=== PATIENT | male | born 1950 | race African-American/Black ===

== ENCOUNTER 2019-04-06 11:19 | Inpatient (IN) ==
[2019-04-06] MEDS ORDERED: DUONEB (A & A) INH PRN (13:43)
[2019-04-06 14:24] LABS: INR 1.16; PROTIME 15.7 Seconds (11.0-16.0)
--- NOTE | 2019-04-06 14:32 | EKG Report ---
Test Performed on : 04/06/2019 2:09:10 PM Test Reason : dyspnea Blood Pressure : / mmHG Vent. Rate : 089 BPM Atrial Rate : 089 BPM P-R Int : 136 ms QRS Dur : 084 ms QT Int : 358 ms P-R-T Axes : 083 035 080 degrees QTc Int : 435 ms Normal sinus rhythm. Normal ECG When compared with ECG of 19-SEP-2018 12:50, No significant change was found Confirmed by Enrrique AGUERO, Jimmy Deshpande ([id number]) on 04/09/2019 11:29:47 AM
[2019-04-06 14:33] LABS: BASO# 0.04 X1000 (0.0-0.2); BASO% 0.4 % (0.0-0.8); EOS# 0.06 X1000 (0.0-0.7); EOS% 0.6 % (0.0-10.0); HEMATOCRIT 25.1 % (42.0-52.0); HEMOGLOBIN 8.2 g/dL (14.0-18.0); IMM GRAN# 0.04 X1000 (0.0-0.04); IMM GRAN% 0.4 % (0.0-0.5); LYMPH# 1.33 X1000 (1.2-3.4); LYMPH% 13.2 % (20.5-51.1); MCH 28.4 PG (27-31); MCHC 32.7 g/dL (33-37); MCV 86.9 FL (81-99); MONO# 0.96 X1000 (0.11-0.59); MONO% 9.5 % (1.7-9.3); MPV 10.3 FL (7.4-10.4); NEUT# 7.63 X1000 (1.4-6.5); NEUT% 75.9 % (42.2-75.2); PLT 331 X1000 (130-400); RBC 2.89 XMIL (4.7-6.1); WBC 10.06 X1000 (4.8-10.8)
[2019-04-06] MEDS ORDERED: NS 1,000 ML IV ONE ×2 (14:41→14:44)
[2019-04-06] MEDS: ROCEPHIN 1 GM in NS 50 ML IV SCH (14:43)
--- NOTE | 2019-04-06 14:43 | Diag Imaging Result Doc PS360 ---
CHEST-2 VIEWS - 04/06/2019 INDICATION: pna COMPARISON: 09/19/2018 FINDINGS: Lungs are hyperexpanded compatible with COPD. There is dense infiltrate in both lung bases. No pneumothorax or significant pleural effusion. Heart size and pulmonary vascularity remain normal. There appear to be CABG changes. IMPRESSION: Dense bilateral basilar infiltrates compatible with pneumonia. Advanced COPD. Electronically signed by Demetris Quiros 04/06/2019 2:41 PM
[2019-04-06] MEDS ORDERED: NS 1,000 ML ONE (14:52)
[2019-04-06 14:58] LABS: AGAP 10; ALB/GLOB RATIO 0.6; ALBUMIN 2.7 g/dL (3.5-5.0); ALKALINE PHOSPHATASE 70 U/L (32-122); BUN 8 mg/dL (8-22); CALCIUM 8.4 mg/dL (8.8-10.2); CHLORIDE 99 mmol/L (98-107); CK PROFILE 87 U/L (24-204); COSMO 266; CREATININE 0.9 mg/dL (0.7-1.2); ESTIMATED GFR > 60; GLUCOSE 96 mg/dL (70-104); GOT 69 U/L (10-34); GPT 43 U/L (10-44); MAGNESIUM 2.1 mg/dL (1.5-2.7); POTASSIUM 4.2 mmol/L (3.5-5.1); SODIUM 134 mmol/L (136-145); TCO2 25 mmol/L (25-35); TOTAL BILIRUBIN 0.78 mg/dL (0.20-1.00); TOTAL PROTEIN 7.2 g/dL (6.3-8.3)
[2019-04-06] MEDS ORDERED: SOLU-MEDROL IV SCH (15:00)
[2019-04-06] MEDS: ZITHROMAX 500 MG/NS 500 MG/250 ML IVPB IV SCH (15:06)
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
--- NOTE | 2019-04-06 16:05 | Diag Imaging Result Doc PS360 ---
CT THORAX W/CONTRAST - 04/06/2019 INDICATION: weight loss, pna, copd COMPARISON: 10/15/2014 FINDINGS: There is nonspecific diffuse mediastinal lymphadenopathy. There is mild cardiomegaly. There are CABG changes. There is substantial infiltrate in both lower lobes, the lingula and right middle lobe. There is also severe diffuse chronic bronchitis. There is significant COPD. There is severe fluid opacification of essentially all of the lower lobe segmental bronchi bilaterally. There is a trace left pleural effusion. There are some small scattered cysts of the liver stable from prior. Otherwise upper abdominal images are unremarkable. IMPRESSION: 1. Severe bibasilar pneumonia. This is likely aspiration related. 2. Trace left pleural effusion. 3. Cardiomegaly. 4. Advanced COPD with chronic bronchitis. This exam was performed using automated exposure control, adjustment of mA or kV according to patient size, and/or use of iterative reconstruction technique Electronically signed by Demetris Quiros 04/06/2019 4:02 PM
[2019-04-06] MEDS: DUONEB (A & A) INH SCH ×3 (16:31→22:56)
[2019-04-06 17:06] LABS: ALLEN TEST YES; BE -0.6 mmoll (-3.0-3.0); BLOOD TYPE ARTERIAL; HCO3-(ACT) 24.4 mmoll (20.0-26.0); METHB 1.3 % (0.0-1.5); O2(CT) 13.8 mL/dL (15.0-23.0); O2HB 92.4 % (95.0-99.0); PCO2(98.6) 33 mmHg (35-45); PO2(98.6) 68 mmHg (60-100); SAMPLE BLOOD; THB 10.6 g/dL (11.5-17.4); pH(98.6) 7.45 (7.35-7.45)
[2019-04-06 17:08] LABS: MODALITY ROOM AIR
[2019-04-06 18:22] LABS: IRON SATURATION 9 %; TIBC 119 ug/dL; TOTAL IRON 11 ug/dL (53-167); UNBOUND IRON 108 ug/dL (112-346)
[2019-04-06] MEDS ORDERED: TYLENOL PO PRN (18:39)
--- NOTE | 2019-04-06 22:18 | HISTORY AND PHYSICAL ---
ADDENDUM: To history and physical dictated by the nurse practitioner. I agree with most components of history, physical, assessment, and plan. IN BRIEF: Mr. Guzman is a 68 years old man with past medical history of chronic obstructive pulmonary disease on home oxygen, active tobacco use, coronary artery bypass grafting in 2001, who came in because of not feeling well. Apparently, was diagnosed with pneumonia about a week ago and was started on outpatient antibiotics, which he did not tolerate, which he did not improve on. He saw his regular doctor today and, considering he was short of breath, he was sent to the emergency room. At the time of my evaluation, he states he is feeling much better than when he woke up this morning. He is denying any chest pain. He is coughing yellowish sputum but his shortness of breath is better. He states he has also lost significant weight recently. We discussed about exam findings, medical management plan. I answered all of his questions currently. PHYSICAL EXAMINATION: VITAL SIGNS: Currently vitals suggest temperature of 97.8 degrees, pulse 87, respiratory rate 20, blood pressure 93/52, saturating 97% on room air. GENERAL: He does not appear in any acute distress. He does appear a little sleepy, however, he is able to maintain adequate communication and answers all questions appropriately. He is alert and oriented x3. HEENT: Oral cavity has nodular appearing tongue. RESPIRATORY: He has significantly decreased breath sounds bilaterally, likely in the setting of chronic obstructive pulmonary disease. However, he does not appear to have significant wheezes. CARDIOVASCULAR: S1, S2 normal. He has significantly noticeable splitting of 2nd heart sound accentuated during expiration. ABDOMEN: Soft, nontender. No jugular venous distention. EXTREMITIES: No lower extremity edema. NEUROLOGIC: He is alert oriented x3. LABS: Suggestive of WBC of 10,000, normocytic anemia, normal platelet count. ABG suggestive of PO2 of 68 on room air. He does have mild hyponatremia. Normal kidney function. His iron studies suggest very low iron saturation suggestive of iron deficiency. However, his ferritin level is high, so there is also a component of anemia of chronic disease. He does have low vitamin D. ASSESSMENT AND PLAN: 1. Bilateral lower lobe pneumonia with failed outpatient treatment. I will follow up with sputum culture, blood culture, urine Legionella, and streptococcal antigen. Will start him on intravenous ceftriaxone, azithromycin, and lactated Ringer's. I will also keep the and on albuterol/ipratropium routinely every 4 hours for history of chronic obstructive pulmonary disease and chronic hypoxic respiratory failure. I will give him oxygen as needed to maintain saturation more than 94%. Currently, he is not wheezing, so I am holding of adding intravenous steroids, and I would add as per the clinical examinations in future. 2. Normocytic anemia with degree of iron deficiency. I will start him on oral iron and also get fecal occult blood testing. 3. Severe protein calorie malnutrition. I encouraged him to eat. His vitamin D level is slightly low and I will start him on vitamin D supplementation. Depending on his course, he might need further workup to rule out any malignancy. I will keep him on nicotine patch for tobacco abuse. 4. History of coronary artery disease status post CABG. He is not able to tell me what medication he was taking at home. I will await final medication reconciliation and we will start him on medications accordingly. Plan of care discussed with the patient. All of his questions have been answered. cc: Harpreet Huynh MD
[2019-04-07] MEDS: DUONEB (A & A) INH SCH ×6 (04:11→23:18)
[2019-04-07 08:11] LABS: BASO# 0.01 X1000 (0.0-0.2); BASO% 0.1 % (0.0-0.8); EOS# 0.01 X1000 (0.0-0.7); EOS% 0.1 % (0.0-10.0); HEMATOCRIT 31.8 % (42.0-52.0); HEMOGLOBIN 10.5 g/dL (14.0-18.0); IMM GRAN# 0.02 X1000 (0.0-0.04); IMM GRAN% 0.2 % (0.0-0.5); LYMPH# 0.55 X1000 (1.2-3.4); LYMPH% 6.1 % (20.5-51.1); MCH 28.5 PG (27-31); MCV 86.4 FL (81-99); MONO# 0.39 X1000 (0.11-0.59); MONO% 4.3 % (1.7-9.3); MPV 10.1 FL (7.4-10.4); NEUT# 8.09 X1000 (1.4-6.5); NEUT% 89.2 % (42.2-75.2); PLT 311 X1000 (130-400); RBC 3.68 XMIL (4.7-6.1); RDW 15.5 % (11.5-14.5); WBC 9.07 X1000 (4.8-10.8)
[2019-04-07 08:44] LABS: AGAP 13; BUN 9 mg/dL (8-22); CHLORIDE 101 mmol/L (98-107); COSMO 275; CREATININE 0.8 mg/dL (0.7-1.2); ESTIMATED GFR > 60; GLUCOSE 208 mg/dL (70-104); MAGNESIUM 2.4 mg/dL (1.5-2.7); POTASSIUM 4.2 mmol/L (3.5-5.1); SODIUM 135 mmol/L (136-145); TCO2 21 mmol/L (25-35)
[2019-04-07] MEDS ORDERED: ASPIRIN PO SCH (09:00)
[2019-04-07] MEDS: LR 1,000 ML IV SCH (09:58)
[2019-04-07] MEDS: CENTRUM SILVER PO SCH (09:59)
[2019-04-07] MEDS: VITAMIN D PO SCH (10:00)
[2019-04-07] MEDS: ZITHROMAX 500 MG/NS 500 MG/250 ML IVPB IV SCH (15:26)
[2019-04-07] MEDS: ROCEPHIN 1 GM in NS 50 ML IV SCH (15:26)
--- NOTE | 2019-04-07 19:37 | PROGRESS NOTE ---
DATE: 04/07/2019 INTERVAL HISTORY: No acute event overnight. SUBJECTIVE: He is feeling much better today. He is denying any new complaints. He has mentioned to the nursing team that he has been also having night sweats. However, his shortness of breath is better. PHYSICAL EXAMINATION: Current Vital Signs: Suggest temperature 97.6 degrees, pulse 84, respiratory rate 20, blood pressure 104/47, saturating 98% on room air. General: An old, cachectic, man not in any acute distress. HEENT: Oral cavity is moist. Lungs: Air entry bilaterally equal with inspiratory crackles, bilateral bases. No wheeze or rhonchi. Cardiac exam: S1, S2 normal. He has a splitting of 2nd heart sounds, accentuated during expiration. No murmur, rub, or gallop. Abdomen: Soft, nontender. Extremities: No lower extremity edema. Neck: No jugular venous distention. Neurologic: He is alert and oriented x3. His family is at bedside. LABORATORIES: Suggestive of no leukocytosis; improvement in hemoglobin, hematocrit, and platelet count; acceptable range of hyponatremia' and normal kidney function. MICROBIOLOGY: Blood cultures are in lab. Urine antigens are also in lab. ASSESSMENT AND PLAN: 1. Bilateral lower lobe pneumonia with failed outpatient treatment. Follow up blood culture and urine antigens for Streptococcus and Legionella. He has not been making any sputum. Continue intravenous ceftriaxone, azithromycin, and intravenous lactated Ringer's. Continue albuterol ipratropium nebulization for history of chronic obstructive pulmonary disease to maintain saturation more than 94%. 2. Normocytic anemia with a degree of iron deficiency. Continue oral iron with multivitamin. 3. Severe protein-calorie malnutrition and about 10 pounds of weight loss in the last 1 month. I encouraged him to eat. Continue vitamin D supplementation for vitamin D deficiency. I will help him schedule outpatient appointment with Gastroenterology for routine colorectal cancer screening as well as outpatient pulmonology recommendations, pulmonology referral for bilateral lung fibrosis as well as mediastinal lymphadenopathy with night sweats. He was advised to stop tobacco abuse. 4. Other: History of coronary artery disease and coronary artery bypass graft in 2001. He is not taking any medications at home. I will continue nicotine patch for his ongoing tobacco abuse. 5. Disposition: The patient remains inside the hospital as we await blood cultures and urine antigens. Plan of care discussed with the patient and his family at bedside. All of their questions have been answered. cc: Harpreet Huynh MD
[2019-04-08] MEDS: LR 1,000 ML IV SCH ×3 (00:48→23:01)
[2019-04-08] MEDS: DUONEB (A & A) INH SCH ×6 (03:20→23:24)
[2019-04-08 07:47] LABS: BASO# 0.02 X1000 (0.0-0.2); BASO% 0.2 % (0.0-0.8); EOS# 0.01 X1000 (0.0-0.7); EOS% 0.1 % (0.0-10.0); HEMATOCRIT 29.4 % (42.0-52.0); HEMOGLOBIN 9.6 g/dL (14.0-18.0); IMM GRAN# 0.03 X1000 (0.0-0.04); IMM GRAN% 0.3 % (0.0-0.5); LYMPH% 13.5 % (20.5-51.1); MCH 28.2 PG (27-31); MCHC 32.7 g/dL (33-37); MCV 86.5 FL (81-99); MONO# 0.94 X1000 (0.11-0.59); MONO% 7.9 % (1.7-9.3); MPV 10.1 FL (7.4-10.4); NEUT# 9.27 X1000 (1.4-6.5); PLT 340 X1000 (130-400); RDW 15.6 % (11.5-14.5); WBC 11.87 X1000 (4.8-10.8)
[2019-04-08 07:59] LABS: AGAP 9; BUN 13 mg/dL (8-22); CALCIUM 8.7 mg/dL (8.8-10.2); CHLORIDE 104 mmol/L (98-107); COSMO 275; CREATININE 0.7 mg/dL (0.7-1.2); ESTIMATED GFR > 60; GLUCOSE 110 mg/dL (70-104); MAGNESIUM 2.4 mg/dL (1.5-2.7); SODIUM 137 mmol/L (136-145); TCO2 24 mmol/L (25-35)
[2019-04-08] MEDS: ZITHROMAX 500 MG/NS 500 MG/250 ML IVPB IV SCH (14:21)
[2019-04-08] MEDS: ROCEPHIN 1 GM in NS 50 ML IV SCH (14:21)
--- NOTE | 2019-04-08 19:35 | PROGRESS NOTE ---
DATE: 04/08/2019 INTERVAL HISTORY: No acute events overnight. SUBJECTIVE: He is feeling progressively better. I again reiterated about following up with Pulmonology and Quality Lab Technician talk about mediastinal lymphadenopathy, age-appropriate cancer screening and colonoscopy. Denies any new complaints. VITALS: Temperature 97.8 degrees, pulse 80, respiratory rate 20, blood pressure 93/56, saturating 100% room air. PHYSICAL EXAMINATION: General: Does not appear in any acute distress. Oral cavity is moist. No pallor, cyanosis. He does have significant clubbing, no icterus. Lungs: Difficult to appreciate considering his longstanding smoking history. However he does not appear to have any wheezing. He does have mild inspiratory crackles. S1, S2 normal. Splitting of the 2nd heart sound which is remarkable accentuated during expiration. No murmur, rub, or gallop. Abdomen: Soft, nontender. No lower extremity edema. He does have temporal muscle wasting. No jugular venous distention. He is alert, oriented x3. LABS: Suggestive of persistent mild leukocytosis, normocytic anemia, normal platelet count. His electrolytes in acceptable range. ASSESSMENT AND PLAN: 1. Bilateral lower lobe pneumonia with failed outpatient treatment. Blood culture no growth till date. His urine antigens are pending. He still appears mildly short of breath. My plan is to monitor him with intravenous antibiotics for 1 more day and also intravenous lactated Ringer's. Continue albuterol ipratropium nebulization for history of COPD to maintain saturation more than 94%. Normocytic anemia with degree of iron deficiency. Continue oral iron with multivitamin. Fecal occult blood test is negative. 2. Severe protein calorie malnutrition with about 10 pounds of weight loss. I will continue to optimize oral nutrition. Continue vitamin D supplementation vitamin D deficiency and I discussed with him about following up with Gastroenterology for routine colorectal cancer screening as well as pulmonology for his diffuse mediastinal lymphadenopathy and night sweat. He is also advised to stop tobacco abuse. 3. Others. Coronary artery disease status post coronary artery bypass graft in 2001. He is not on any medication at the moment. I will continue nicotine patch for his ongoing tobacco abuse. 4. Disposition. Patient remains inside the hospital as we await final urine antigen reasons. Plan of care discussed with the patient and his family at bedside. All of their questions have been satisfactorily answered. cc: Harpreet Huynh MD
[2019-04-09] MEDS: DUONEB (A & A) INH SCH ×3 (03:45→11:35)
[2019-04-09] MEDS: CENTRUM SILVER PO SCH ×2 (07:24→08:12)
[2019-04-09] MEDS: LR 1,000 ML IV SCH ×2 (07:25→13:43)
[2019-04-09] MEDS: ICAR-C PO SCH ×2 (07:25→08:12)
[2019-04-09] MEDS: VITAMIN D PO SCH ×2 (07:25→08:13)
[2019-04-09 07:26] LABS: BASO# 0.03 X1000 (0.0-0.2); BASO% 0.4 % (0.0-0.8); EOS# 0.12 X1000 (0.0-0.7); EOS% 1.5 % (0.0-10.0); HEMATOCRIT 32.5 % (42.0-52.0); HEMOGLOBIN 10.3 g/dL (14.0-18.0); IMM GRAN# 0.03 X1000 (0.0-0.04); IMM GRAN% 0.4 % (0.0-0.5); LYMPH# 1.99 X1000 (1.2-3.4); LYMPH% 24.4 % (20.5-51.1); MCH 27.5 PG (27-31); MCHC 31.7 g/dL (33-37); MCV 86.9 FL (81-99); MONO# 0.67 X1000 (0.11-0.59); MONO% 8.2 % (1.7-9.3); MPV 10.1 FL (7.4-10.4); NEUT# 5.32 X1000 (1.4-6.5); NEUT% 65.1 % (42.2-75.2); PLT 351 X1000 (130-400); RBC 3.74 XMIL (4.7-6.1); RDW 15.7 % (11.5-14.5); WBC 8.16 X1000 (4.8-10.8)
[2019-04-09 07:48] LABS: LYMPHS 26 % (21-51); SEGS 72 % (42-75)
[2019-04-09 13:37] VITALS: BP 105/54
[2019-04-09] MEDS: ROCEPHIN 1 GM in NS 50 ML IV SCH (13:43)
[2019-04-09] MEDS ORDERED: PNEUMOVAX 23 IM ONE (16:05)
--- NOTE | 2019-04-10 06:52 | DISCHARGE SUMMARY ---
ADMISSION DATE: 04/06/2019 DISCHARGE DATE: 04/09/2019 DISCHARGE DISPOSITION: Home. DISCHARGE CONDITION: The patient is alert and oriented x3. Denies any chest pain or shortness of breath. Breathing well on room air. He is not wheezy, and is not coughing. DISCHARGE DIAGNOSES: 1. Bilateral lower lobe pneumonia with failed outpatient treatment. 2. Severe protein calorie malnutrition with 10 pounds of weight loss. 3. History of coronary artery disease status post CABG in 2001. 4. Bilateral lower lung emphysema. 5. Vitamin D deficiency. 6. Chronic anemia. OTHER DIAGNOSES: 1. Active tobacco use. 2. History of coronary artery disease and coronary artery bypass grafting. DISCHARGE MEDICATIONS: 1. Cefuroxime 500 mg every 6 hours 16 tablets have been prescribed for 4 days. 2. Multivitamin with minerals 1 tablet daily 30 tablets. 3. Combivent Respimat inhalation every 4 hours as needed for shortness of breath. 4. Icar C tablets 1 tablet daily 30 tablets. 5. Spiriva inhaler 1 puff inhaled daily 1 inhaler. 6. Vitamin D3 5000 international units daily 30 capsules. VITALS: At the time of discharge, temperature 98.1 degrees, pulse 79, respiratory 21, blood pressure 105/54 and saturating 99% on room air. PHYSICAL EXAMINATION: He does not appear in any acute distress. Oral cavity is moist. No pallor or cyanosis. He does have significant clubbing. No icterus. He also has dry skin. Lungs difficult to appreciate. Adequate air entry considering his advanced emphysema, though he does have equal air entry bilateral upper lung scott. He does have mild inspiratory crackles bilateral infrascapular region. S1, S2 normal. Prominent splitting of 2nd heart sound accentuated during expiration. No murmur, rub, or gallop. Abdomen is soft and nontender. No lower extremity edema. He does have temporal muscle wasting. No jugular venous distention. He is alert and oriented x3. SIGNIFICANT LABS DURING HOSPITAL ADMISSION: WBC count was 10,000 on admission. He was 8000 at the time of discharge. His hemoglobin is 10.3 and platelet 351,000. His coagulations were normal. His electrolytes are normal except calcium of 8.7. His BUN is 13 and creatinine of 0.7. His urine Legionella and streptococcal antigens are negative. Blood cultures did not show any growth to date. Fecal occult blood test was negative. SIGNIFICANT IMAGING DURING HOSPITAL ADMISSION: Chest x-ray on admission had dense bilateral basilar infiltrates compatible with pneumonia and advanced COPD. Chest CT had suggested severe bibasilar pneumonia, likely aspiration related. However, patient did not have any swallowing difficulty. Trace left pleural effusion, cardiomegaly, and advanced COPD with chronic bronchitis. HOSPITAL COURSE SUMMARY: Mr. Guzman is 68 years old man with history of COPD, advanced tobacco use, intermittent home oxygen use, and coronary artery bypass graft in 2001 who came in because of not feeling well. Apparently, he was diagnosed with pneumonia a week prior to presentation and was started on outpatient antibiotics, which he did not tolerate and his shortness of breath worsened so he came to the emergency room. In the emergency room, the CT scan had detected bilateral lower lung pneumonia so hospitalist team was consulted for further management. The patient was admitted on routine medical floor. He was treated with intravenous ceftriaxone, azithromycin and nebulized bronchodilators. His urine streptococcal and Legionella antigens, and blood cultures were negative. After 3 days of intravenous antibiotics, he had significantly improved and he was breathing on room air without any disturbance. He was discharged on p.o. antibiotics. He was provided instructions about COPD. He was advised to follow up with lung doctor and discuss about the lung CT scan finding including mediastinal adenopathy. He was also provided instructions to follow up with analysis intern for age-appropriate cancer screening since the patient has had significant weight loss. At the time of discharge, the patient was hemodynamically stable. All of his questions were satisfactorily answered. More than 30 minutes were spent in discharging this patient. cc: Harpreet Huynh MD
== END 2019-04-09 16:35 | disposition home or self-care (01) | DRG 193 ==
LOC: SUATTDRO 11:19 → DIRADM 11:19 → 3N 11:45
PROVIDERS: ATTEND Internal Medicine
CPT/HCPCS: 71020; 71046; 71260; 80048; 80053; 82270; 82306; 82550; 82607; 82728; 82746; 82805; 83540; 83550; 83735; 84134; 84443; 84484; 85025; 85610; 87040; 87449; 87899; 90732; 93005; 93010; 94640; 94760; 94761; A9270; J0456; J0696; J2930; J7030; J7120; Q9967